=== PATIENT | female | born 1960 | race Caucasian/White ===

== ENCOUNTER → 2017-06-25 | Day surgery (SDC) | payer OTHER ==
[~2017-06-25] VITALS: Ht 162.6 cm; Wt 125.3 kg
[~2017-06-25] MED LIST: *morphine SULFATE 8 MG/ML PERIprocedure ONLY ONE; AMLO5TAB2 PO; ASPI81TA81 PO; ATEN50TA PO; CHLORHEXIDINE GLUCONATE 2 % 1 PACK (2 CLOTHS) TOPICAL PRN; CLOPIDOGREL 75 MG TAB PO ONE; DO NOT ADM ANY ANTICOAGULANT DRUGS PRN; EMPA1TAB PO; EMPA1TAB3 PO; FAMOTIDINE 20 MG/2 ML VIAL ONE; FENO145T2 PO; HEPARIN SODIUM - IV 10,000 UNITS/10 ML VIAL ONE; HYDR-3535 PO; INSU1INJ14 SQ; INSULIN HUMAN REGULAR 1,000 UNITS/10 ML VIAL SQ PRN; IOHEXOL 300 MG/ML 50 ML BTL (for RAD DIAG) ONE; IOHEXOL 350 MG/ML 100 ML BTL (for RAD DIAG) OTHER ONE; LACTATED RINGER'S 1000 ML INJ 1,000 ML IV ONE; LACTATED RINGER'S 1000 ML IV PRN; LOSA100T PO; LOSA50TA PO; LOVA40TA PO; METF1000 PO; METOPROLOL TARTRATE 25 MG TAB PO PRN; MIDAZOLAM HCL 2 MG/2 ML VIAL ONE; NEOSTIGMINE 3 MG/3 ML SYR IV ONE; ONDANSETRON HCL 4 MG/2 ML VIAL IV PUSH ONE; PHENYLEPH/NS 1000 MCG/10 ML SYR IV ONE; POVIDONE IODINE 5% (ANTISEPSIS KIT) 4 APPLICATIONS EACH NARE PRN; PROPOFOL 200 MG/20 ML AMP IV ONE; PROTAMINE SULFATE 50 MG/5 ML VIAL ONE; RANI150T PO; SODIUM CHLORID 0.9% 500 ML IV PRN; ePHEDrine/NS 25 MG/5 ML SYR IV ONE; fentaNYL CITRATE 250 MCG/5 ML AMP ONE
--- NOTE | 2017-06-25 08:56 | PD.VS.PN ---
Pre-operative Note Pre-operative diagnosis: B LE PAD, rest pain Planned procedure: Aortogram w/ B LE interventions Interval History: Pt has no changes in medical history that would preclude OR. Labs: Laboratory Results Test 06/25/17 08:30 Blood: none needed Imaging: will make in OR Orders: NPO Post-operative destination: PACU Operative site marked: No (not indicated) Consent: Informed consent has been obtained from Lorraine Elliott. I have explained the procedure in detail and discussed the risks, benefits, and potential complications. All questions have been answered. Mega Lin MD Jun 25, 2017 08:56
[2017-06-25 08:57] LABS: BASOPHIL # 0.1 TH/MM3 (0-0.2); BASOPHIL % 0.9 % (0.0-2.0); EOSINOPHIL # 0.3 TH/MM3 (0-0.4); EOSINOPHIL % 3.2 % (0.0-4.0); HEMO FLAGS DIFF FINAL; LYMPH % 34.6 % (9.0-44.0); LYMPHOCYTE # 3.3 TH/MM3 (1.0-4.8); MEAN CELL VOLUME 83.6 FL (80.0-100.0); MEAN CORPUSCULAR HEMOGLOBIN 27.6 PG (27.0-34.0); MONO % 8.6 % (0.0-8.0); NEUT % 52.7 % (16.0-70.0); PLATELET COUNT 306 TH/MM3 (150-450); RED BLOOD COUNT 4.54 MIL/MM3 (4.00-5.30); RED CELL DISTRIBUTION WIDTH 15.2 % (11.6-17.2); WHITE BLOOD COUNT 9.4 TH/MM3 (4.0-11.0)
[2017-06-25 09:24] LABS: BICARBONATE 23.7 MEQ/L (21.0-32.0); POTASSIUM 3.9 MEQ/L (3.5-5.1)
--- NOTE | 2017-06-25 11:06 | EKG ---
Date Performed: 06/25/2017 Time Performed: 07:59:11 PTAGE: 56 years EKG: Sinus rhythm LOW QRS VOLTAGE IN PRECORDIAL LEADS POSSIBLE INFERIOR MYOCARDIAL INFARCTION ABNORMAL ECG PREVIOUS TRACING : 02/10/2011 11.27 No significant change from previous tracing noted. DOCTOR: Matt Ardon Interpretating Date/Time 06/25/2017 11:04:32
--- NOTE | 2017-06-25 11:19 | HHI.PR ---
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
[2017-06-25 14:01] VITALS: BP 135/63; PULSE 77; RESP 20; TEMP 98.6; O2SAT 95
--- NOTE | 2017-06-28 08:55 | MP ---
cc: MEGA LIN MD DATE OF SURGERY: 06/25/2017 PREOPERATIVE DIAGNOSIS Bilateral lower extremity rest pain, peripheral vascular disease. POSTOPERATIVE DIAGNOSIS Bilateral lower extremity rest pain, peripheral vascular disease. PROCEDURE 1. Aortogram with bilateral lower extremity angiogram. 2. Right peroneal artery angioplasty. 3. Bilateral common femoral artery Angio-Seal. ATTENDING SURGEON Mega Lin MD RAIL DOWELING MACHINE OPERATOR Gallo Lyle. ANESTHESIA General. INDICATIONS Mrs. Elliott is a 56-year-old lady with bilateral lower extremity occlusive disease. She presents with rest pain of the right leg and claudication of her left and she is taken to the operating room for angiographic evaluation and potential treatment. There is no prior catheter-based imaging available for my review. DESCRIPTION OF PROCEDURE Informed consent was obtained from the patient. She was taken to the operating room and placed supine on the operating room table. An appropriate time-out was taken to ensure the patient identity, the operative site and planned procedure. Antibiotics were not necessary as this is a clean procedure without planned implantation of any foreign object. Everyone in the room agreed with time-out and we proceeded. Her bilateral groins were prepped and draped. A 21 gauge micropuncture needle was used to access the left common femoral artery. This was exchanged using Seldinger technique for micropuncture sheath for which a 0.035 Glidewire was introduced and the micropuncture sheath was exchanged for a 5-Turkish sheath. A VCF catheter was placed over the wire into the sheath and aortogram and pelvic arteriogram was obtained. The Glidewire was reintroduced and navigated down to the right common femoral artery and the VCF catheter was advanced over this. A right lower extremity arteriogram was obtained. The patient was systemically heparinized with 5000 units of IV heparin. A 0.035 Macias wire was introduced through the VCF catheter and the VCF catheter and 5-Turkish sheath were removed and a 6-Turkish 90 cm sheath was introduced and advanced down to the distal SFA. A CXI catheter was advanced over the Macias wire and the Macias was exchanged for a SPECIAL EDUCATION CURRICULUM SPECIALIST wire. Using a SPECIAL EDUCATION CURRICULUM SPECIALIST wire and CXI catheter we were able to navigate down past the peroneal artery occlusion and indeed into the mid peroneal artery which is widely patent. The CXI catheter was advanced over the SPECIAL EDUCATION CURRICULUM SPECIALIST wire and over the SPECIAL EDUCATION CURRICULUM SPECIALIST wire a 3 x 80 balloon was then used to angioplasty the peroneal artery. Completion angiogram showed some distal spasm but no luminal flow disruption, no dissection and excellent technical result. The wire, catheter and sheath were removed and the groin was closed with AngioSeal. We then turned our attention towards the left-hand side. A 21 gauge micropuncture needle was used to access the right common femoral artery and this was exchanged using Seldinger technique for micropuncture sheath through which a 0.035 Glidewire was introduced and micropuncture sheath was exchanged for a 5-Turkish sheath and a VCF catheter was placed over the wire into the sheath and the Glidewire was navigated down to the left common femoral artery. The VCF catheter was advanced over this and a left lower extremity arteriogram was obtained. Additional 3000 units of IV heparin was then administered. A Macias wire was passed down the popliteal artery and the VCF catheter and 5-Turkish sheath removed and a 6-Turkish 90 cm sheath was introduced. A CXI catheter was placed over the Macias wire and using the CXI catheter and SPECIAL EDUCATION CURRICULUM SPECIALIST wire multiple attempts were made to recannulize the popliteal artery but these were unsuccessful. Wire, catheter and sheath were removed and the right groin was closed with AngioSeal. There were no complications. I was present and scrubbed and performed the entire procedure. INTERPRETATION OF IMAGES The patient has a patent renal artery, patent infrarenal aorta, iliac arteries, hypogastric arteries and external iliac arteries. None of these have any hemodynamically appearing stenosis. The right common femoral artery is patent. The superficial femoral artery is patent and the profunda is patent. The SFA is patent and the popliteal artery is patent. The anterior tibial artery and posterior tibial artery are occluded and the peroneal artery is occluded proximally with good reconstitution distally. After recanalization of the peroneal artery on the right-hand side there is an angioplasty, with 3 mm balloon, there is good in-line flow to the ankle with reconstitution of the anterior tibial artery via the tarsal branches. On the left-hand side the common femoral, superficial femoral and profunda are all patent. The popliteal artery is occluded in the below knee popliteal artery segment but then reconstitutes the peroneal artery. The anterior tibial artery and posterior tibial arteries are occluded. MD MARILOU Adams/TLL /4:55 PM /8:24 AM MTDD
== END | disposition home or self-care (01) ==
LOC: HSDC 07:13
PROVIDERS: ATTEND Surgery
DX: I73.9 Peripheral vascular disease, unspecified (principal); E11.9 Type 2 diabetes mellitus without complications; I10 Essential (primary) hypertension; Z01.810 Encounter for preprocedural cardiovascular examination; Z01.818 Encounter for other preprocedural examination
CPT/HCPCS: 01500; 37228; 75716; 80048; 85025; 85610; 86850; 86900; 86901; 93005; C1725; C1769; J1644; J2250; J2270; J2370; J2405; J2710; J2720; J3010; J7120; Q9967